=== PATIENT | female | born 1950 | race Caucasian/White ===

== ENCOUNTER → 2025-02-18 | Outpatient (CLI) | payer MEDICARE, SELFPAY ==
--- NOTE | 2025-02-18 14:30 | XR_ITS ---
Examination: CT chest with intravenous contrast CT abdomen with intravenous contrast CT pelvis with intravenous contrast 2-D coronal and sagittal reconstructions Time of exam: February 18, 2025, 1420 hours, comparison February 07, 2022 INDICATIONS: 25 pound weight loss in the last 2 months CTDI: vol (mGy) : 15.5 DLP: (mGycm): 660 Technique: Multiple axial images of the chest, abdomen and pelvis with intravenous contrast, 3.0 mm slice thickness. Images obtained post intravenous injection Isovue 370 60 cc. 2-D sagittal and coronal reconstructions. Low dose protocols were performed. One or more of the following dose reduction techniques were used; automated exposure control, adjustment of the mA and/or KV according to patient size, use of iterative reconstruction technique. Findings: No thoracic degenerative aneurysm dilatation. No pulmonary artery filling defects. No paratracheal tracheobronchial or bronchopulmonary adenopathy. No pneumonia, pulmonary edema or pleural disease Liver is mildly irregular contour no focal liver lesions Absent gallbladder Spleen not enlarged No pancreatic or adrenal mass. Minimal dilatation of the right calyces Aorta normal size No abdominal or pelvic lymphadenopathy Normal appendix Scattered colonic diverticulosis, no diverticulitis Absent uterus Contracted urinary bladder Severe osteopenia, again noted chronic compression L1 IMPRESSION: No mediastinal lymphadenopathy No pneumonia, pulmonary edema or pleural disease Mild dilatation right renal calyces, consider urinary tract infection No hepatic lesions. Negative for abdominal or pelvic lymphadenopathy
== END | disposition home or self-care (01) ==
LOC: CCTX 13:23
PROVIDERS: PCP Specialist; Referring Provider Specialist; Visit Provider Specialist
DX: N39.0 Urinary tract infection, site not specified (principal)
CPT/HCPCS: 71260; 74177; A4649; Q9967